=== PATIENT | male | born 1995 | race Caucasian/White ===

== ENCOUNTER 2020-09-22 06:13 | Emergency (ER) | payer OTHER, BC ==
[2020-09-22] MEDS ORDERED: Zofran 4 MG/2 ML VIAL IV ONE (06:26)
[2020-09-22] MEDS ORDERED: Sodium Chloride 0.9% 1000 ML 1,000 ML IV STA ×2 (06:26→07:37)
[2020-09-22] MEDS ORDERED: TYLENOL 325 MG PO ONE (06:27)
[2020-09-22] MEDS ORDERED: Zofran 4 MG/2 ML VIAL ONE (06:33)
[2020-09-22] MEDS ORDERED: TYLENOL 325 MG ONE (06:33)
[2020-09-22] MEDS ORDERED: Sodium Chloride 0.9% 1000 ML 1,000 ML ONE ×2 (06:33→07:44)
--- NOTE | 2020-09-22 06:41 | ERPHSYRPT ---
- History of Present Illness Source: patient Exam Limitations: no limitations Timing/Duration: yesterday Associated Symptoms: nausea, vomiting, cough, chills, fever Hx Tetanus, Diphtheria Vaccination/Date Given: Yes Hx Influenza Vaccination/Date Given: No Hx Pneumococcal Vaccination/Date Given: No <GIL ALMAGUER - Last Filed: 09/22/20 06:55> <DEBORAHLASHAUN HenryTashi - Last Filed: 09/22/20 07:46> - History of Present Illness Time Seen by Provider: 09/22/20 06:13 Physician History: The patient is a 25-year-old male who is otherwise healthy presents with a chief complaint of a fever and cough. Onset reportedly was yesterday. In addition to the above complaints, he also complained of a headache, sore t hroat, sinus congestion, nausea, vomiting and chills. He reportedly had outpatient testing for COVID-19 yesterday which is currently pending. He decided to come to the emergency department this morning because of his ongoing symptoms. Endorsed having nonbloody nonbilious vomiting denies diarrhea. He denies any recent sick contacts. His T-max reportedly was 103 and his last dose of Tylenol was around midnight this morning. (GIL ALMAGUER) Allergies/Adverse Reactions: Penicillins Allergy (Severe, Verified 09/22/20 06:17) SWELLING FACE AND THROAT Home Medications: No Home Meds 03/29/12 [History] - Review of Systems Constitutional: Fever, Chills Eyes: No Symptoms Ears, Nose, & Throat: Nose Congestion, Throat Pain Respiratory: Cough, Dyspnea Cardiac: No Chest Pain Abdominal/Gastrointestinal: Nausea, Vomiting, No Abdominal Pain, No Diarrhea Genitourinary Symptoms: No Dysuria, No Frequency, No Hematuria Musculoskeletal: Myalgias Skin: No Symptoms Neurological: Headache Psychological: No Symptoms All Other Systems: Reviewed and Negative <GIL ALMAGUER - Last Filed: 09/22/20 06:55> - Past Medical History Pertinent Past Medical History: No - Past Surgical History Past Surgical History: No - Social History Smoking Status: Never smoker Exposure to second hand smoke: No Drug Use: none Patient Lives Alone: No ([facility]) <GIL ALMAGUER - Last Filed: 09/22/20 06:55> - Physical Exam General Appearance: no apparent distress, alert Eye Exam: PERRL/EOMI, No scleral icterus, No photophobia, No EOM palsy/anisocoria Ears, Nose, Throat Exam: TMs normal, pharyngeal erythema, tonsillar exudate Neck Exam: normal inspection, supple, No meningismus Respiratory Exam: normal breath sounds, lungs clear, airway intact, No chest tenderness, No respiratory distress Cardiovascular Exam: normal peripheral pulses, tachycardia, capillary refill <2 sec Gastrointestinal/Abdomen Exam: soft Rectal Exam: deferred Back Exam: normal inspection Extremity Exam: normal inspection, No deformities Neurologic Exam: alert, oriented x 3, normal mood/affect Skin Exam: normal color, warm, other (Skin was hot to touch) SpO2 Interpretation: normal O2 Delivery: Room Air <GIL ALMAGUER - Last Filed: 09/22/20 06:55> - Nursing Vital Signs Nursing Vital Signs: Initial Vital Signs Temperature 100.4 F 09/22/20 06:19 Pulse Rate 113 H 09/22/20 06:19 Respiratory Rate 20 09/22/20 06:19 Blood Pressure 136/76 09/22/20 06:19 O2 Sat by Pulse Oximetry 95 09/22/20 06:19 Pain Scale Pain Intensity 8 - Course Nursing assessment & vital signs reviewed: Yes <GIL ALMAGUER - Last Filed: 09/22/20 06:55> Ordered Tests: Active Orders 24 hr Category Date Time Status IV Insertion STAT Care 09/22/20 06:25 Active CHEST 1 VIEW (PORTABLE) Stat Exams 09/22/20 06:25 Taken BMP Stat Lab 09/22/20 06:30 Completed CBC W DIFF Stat Lab 09/22/20 06:30 Completed INFLUENZA A+B MONICO Stat Lab 09/22/20 06:40 Completed Medication Summary Discontinued Medications Generic Name Dose Route Start Last Admin Trade Name Freq PRN Reason Stop Dose Admin Acetaminophen 975 mg 09/22/20 06:27 09/22/20 06:36 Tylenol 325 Mg PO 09/22/20 06:28 975 mg STAT ONE Administration Acetaminophen Confirm 09/22/20 06:33 Tylenol 325 Mg Administered 09/22/20 06:34 Dose 975 mg .ROUTE .STK-MED ONE Sodium Chloride 1,000 mls @ 999 mls/hr 09/22/20 06:26 09/22/20 06:35 Sodium Chloride 0.9% 1000 Ml IV 09/22/20 07:26 999 mls/hr .Q1H1M STA Administration Sodium Chloride Confirm 09/22/20 06:33 Sodium Chloride 0.9% 1000 Ml Administered 09/22/20 06:34 Dose 1,000 mls @ ud .ROUTE .STK-MED ONE Ondansetron HCl 4 mg 09/22/20 06:26 09/22/20 06:36 Zofran 4 Mg/2 Ml Vial IV 09/22/20 06:27 4 mg STAT ONE Administration Ondansetron HCl Confirm 09/22/20 06:33 Zofran 4 Mg/2 Ml Vial Administered 09/22/20 06:34 Dose 4 mg .ROUTE .STK-MED ONE Lab/Rad Data: Laboratory Result Diagrams 09/22/20 06:30 09/22/20 06:30 Laboratory Results 09/22/20 09/22/20 09/22/20 Range/Units 06:40 06:40 06:30 WBC (4.0-10.5) K/mm3 RBC (4.1-5.6) M/mm3 Hgb (12.5-18.0) gm/dl Hct (42-50) % MCV (78-100) fl MCH (26-32) pg MCHC (32-36) g/dl RDW (11.5-14.0) % Plt Count (150-450) K/mm3 MPV (7.5-11.0) fl Gran % (36.0-66.0) % Eos # (Auto) (0-0.5) Absolute Lymphs (auto) (1.0-4.6) Absolute Monos (auto) (0.0-1.3) Lymphocytes % (24.0-44.0) % Monocytes % (0.0-12.0) % Eosinophils % (0.00-5.0) % Basophils % (0.0-0.4) % Absolute Granulocytes (1.4-6.9) Basophils # (0-0.4) Sodium 133 L (137-145) mmol/L Potassium 3.8 (3.5-5.1) mmol/L Chloride 98 (98-107) mmol/L Carbon Dioxide 25 (22-30) mmol/L Anion Gap 13.9 (5-15) MEQ/L BUN 10 (9-20) mg/dL Creatinine 0.71 (0.66-1.25) mg/dL Estimated GFR > 60.0 ML/MIN Glucose 125 H (74-106) mg/dL Calcium 9.6 (8.4-10.2) mg/dL Influenza Type A Ag NEGATIVE (NEGATIVE) Influenza Type B Ag NEGATIVE (NEGATIVE) Group A Strep Antibody DETECTED (NEGATIVE) 09/22/20 Range/Units 06:30 WBC 18.0 H (4.0-10.5) K/mm3 RBC 4.80 (4.1-5.6) M/mm3 Hgb 13.9 (12.5-18.0) gm/dl Hct 42.0 (42-50) % MCV 87.5 (78-100) fl MCH 29.0 (26-32) pg MCHC 33.1 (32-36) g/dl RDW 12.5 (11.5-14.0) % Plt Count 167 (150-450) K/mm3 MPV 11.4 H (7.5-11.0) fl Gran % 86.7 H (36.0-66.0) % Eos # (Auto) 0 (0-0.5) Absolute Lymphs (auto) 0.93 L (1.0-4.6) Absolute Monos (auto) 1.43 H (0.0-1.3) Lymphocytes % 5.2 L (24.0-44.0) % Monocytes % 8.0 (0.0-12.0) % Eosinophils % 0.0 (0.00-5.0) % Basophils % 0.1 (0.0-0.4) % Absolute Granulocytes 15.60 H (1.4-6.9) Basophils # 0.02 (0-0.4) Sodium (137-145) mmol/L Potassium (3.5-5.1) mmol/L Chloride (98-107) mmol/L Carbon Dioxide (22-30) mmol/L Anion Gap (5-15) MEQ/L BUN (9-20) mg/dL Creatinine (0.66-1.25) mg/dL Estimated GFR ML/MIN Glucose (74-106) mg/dL Calcium (8.4-10.2) mg/dL Influenza Type A Ag (NEGATIVE) Influenza Type B Ag (NEGATIVE) Group A Strep Antibody (NEGATIVE) - Progress Counseled pt/family regarding: lab results, diagnosis, need for follow-up, rad results <GIL ALMAGUER - Last Filed: 09/22/20 06:55> <LASHAUN CABRERA - Last Filed: 09/22/20 07:46> - Progress Progress Note: 09/22/20 06:39 Nontoxic appearance. The patient presents with fever, chills, cough and sore throat headache with myalgias as well as nausea and vomiting concerning for viral syndrome. He is already had outpatient testing for Covid early pending at this time. I would not repeat his testing today because of this. I will go and test for influenza and strep pharyngitis. General labs to include CBC and BMP will also be obtained as well as a chest x-ray given his complaint of shortness of breath eval for pneumonia. Given a liter of IV fluids, ondansetron for antiemetics, and Tylenol to treat his fever. Once the patient's fever is coming down or resolved and his tachycardia resolved and he is feeling better I believe he can be discharged home with his work-up was relatively negative or if he does have group A strep pharyngitis or influenza. 09/22/20 06:41 Patient care will be transitioned to Dr. Cabrera pending workup findings and disposition. (GIL ALMAGUER) 09/22/20 07:43 Chest x-ray shows no acute infiltrate or other cardio pulmonary process (LASHAUN CABRERA) - Departure Departure Disposition: Home Critical Care Time: No <GIL ALMAGUER - Last Filed: 09/22/20 06:55> - Departure Departure Disposition: Home Critical Care Time: No <LASHAUN CABRERA - Last Filed: 09/22/20 07:46> - Departure Clinical Impression: Strep pharyngitis Condition: Stable Additional Instructions: Please take Tylenol and/or ibuprofen as needed for any ongoing fevers, aches, or pains. You can purchase these medications [id number]. Please take these medications as instructed on the medication bottle. Prescriptions: Ondansetron ODT 4 MG [Zofran Odt 4 mg] 4 mg PO Q6H PRN PRN #10 tab.rapdis PRN Reason: Nausea/Vomiting Hydrocodone/Acetaminophen [Hydrocodone-Acetamn 7.5-325/15] 10 ml PO Q8H PRN PRN #120 solution MDD 30ml PRN Reason: Cough Benzonatate [Tessalon Perle] 100 mg PO [id number] PRN #30 capsule PRN Reason: Cough Albuterol 8 gm Mdi Hfa [Ventolin Hfa MDI] 90 mcg IH Q4H PRN #1 [id number] PRN Reason: Shortness Of Breath Azithromycin 250 mg [Zithromax 250 MG TABLET] 250 mg PO ZPACK #6 tablet
[2020-09-22 06:48] LABS: BASOPHIL % 0.1 % (0.0-0.4); Basophil (Absolute #) 0.02 (0-0.4); Eosinophil (Absolute #) 0 (0-0.5); Hemoglobin 13.9 gm/dl (12.5-18.0); Lymphocyte (Absolute #) 0.93 (1.0-4.6); Lymphocytes % 5.2 % (24.0-44.0); Mean Cell Volume 87.5 fl (78-100); Mean Corpuscular Hgb Concent. 33.1 g/dl (32-36); Mean Platelet Volume 11.4 fl (7.5-11.0); Monocyte (Absolute #) 1.43 (0.0-1.3); Neutrophil % 86.7 % (36.0-66.0); Platelet Count 167 K/mm3 (150-450); Red Cell Distribution Width 12.5 % (11.5-14.0)
[2020-09-22 06:54] LABS: ANION GAP 13.9 MEQ/L (5-15); BLOOD UREA NITROGEN 10 mg/dL (9-20); CHLORIDE 98 mmol/L (98-107); Calcium 9.6 mg/dL (8.4-10.2); Carbon Dioxide 25 mmol/L (22-30); Creatinine 1 0.71 mg/dL (0.66-1.25); EST GLOMERULAR FILTRATION RATE > 60.0 ML/MIN; Glucose 125 mg/dL (74-106); Potassium 3.8 mmol/L (3.5-5.1); SODIUM 133 mmol/L (137-145)
[2020-09-22 07:01] LABS: INFLUENZA A NEGATIVE (NEGATIVE); INFLUENZA B NEGATIVE (NEGATIVE)
[2020-09-22] MEDS ORDERED: Zithromax 500 MG/ 250 ML NaCl Premix 500 MG/250 ML IVPB IV STA (07:42)
[2020-09-22] MEDS ORDERED: Zithromax 500 MG/ 250 ML NaCl Premix 500 MG/250 ML IVPB IV ONE (07:44)
--- NOTE | 2020-09-22 08:54 | XRAY ---
Indication: Fever and cough. Comparison: August 28, 2018. Portable chest again demonstrates normal heart and lungs. Bony thorax intact. No new/acute findings.
[2020-09-22 08:56] VITALS: BP 106/58; PULSE 78; O2SAT 96
== END 2020-09-22 08:56 | disposition home or self-care (01) ==
LOC: ED 06:13
DX: J02.0 Streptococcal pharyngitis (principal); R11.2 Nausea with vomiting, unspecified; R05 Cough; R50.9 Fever, unspecified; R51.9 Headache, unspecified; R09.81 Nasal congestion
CPT/HCPCS: 36000; 36415; 71045; 80048; 85025; 87400; 87651; 96360; 96365; 96374; 99284; J0456; J2405; A9270-GY

== ENCOUNTER 2020-12-15 16:50 | Emergency (ER) | payer OTHER, BC ==
[2020-12-15] MEDS ORDERED: TORAdol 30 mg Injection IM ONE (18:23)
[2020-12-15] MEDS ORDERED: TORAdol 30 mg Injection ONE ×2 (18:25→18:26)
--- NOTE | 2020-12-15 18:29 | ERPHSYRPT ---
- History of Present Illness Source: patient Patient Subjective Stated Complaint: Pt states "I was working and lifted a meg tito block wrong and my back is killing me." Triage Nursing Assessment: Pt presented alert and oriented X 3, skin pwd Pt ambulates with a slow hunched over gait, able to speak in clear full sentences pt has no bruising, no loss of bowel or bladder. pt csm x 4 Physician History: 25 yo wm w lumbar pain x 12hrs after lifting at work. Pain 7/10 and worse w movement. Pain radiates to L thigh. He has a h/o compression fx's in his upper back due to a fall in HS. He denies any trauma today. Pt also denies dysuria/hematuria/incontinence of urine-stool. Timing/Duration: today (12 hours) Method of Injury: lifting Quality: dull (tightness) Back Pain Location: lumbar spine Back Pain Radiation: upper legs (L thigh) Modifying Factors: Improves With: movement (Worse w movement) Associated Symptoms: lower back pain, No fever, No chills, No sweating, No urinary incontinence, No loss of bowel control, No constipation, No nausea, No vomiting, No problems urinating, No light-headedness, No dizziness, No numbness in legs/feet, No weakness, No sensory/motor loss, No tingling in legs/feet, No muscle spasms Previous symptoms: no prior history Allergies/Adverse Reactions: Penicillins Allergy (Severe, Verified 09/22/20 06:17) SWELLING FACE AND THROAT Hx Tetanus, Diphtheria Vaccination/Date Given: Yes Hx Influenza Vaccination/Date Given: Yes Hx Pneumococcal Vaccination/Date Given: No Immunizations Up to Date: Yes Travel Risk - International Travel Have you traveled outside of the country in past 3 weeks: No - Coronavirus Screening Are you exhibiting any of the following symptoms?: No Close contact with a COVID-19 positive Pt in past 14-21 Days: No - Vaccine Status Have you recieved a Covid-19 vaccination: No - Review of Systems Constitutional: No Symptoms Eyes: No Symptoms Ears, Nose, & Throat: No Symptoms Respiratory: No Symptoms Cardiac: No Symptoms Abdominal/Gastrointestinal: No Symptoms Genitourinary Symptoms: No Symptoms Musculoskeletal: No Symptoms, Back Pain Skin: No Symptoms Neurological: No Symptoms Psychological: No Symptoms Endocrine: No Symptoms Hematologic/Lymphatic: No Symptoms Immunological/Allergic: No Symptoms - Past Medical History Pertinent Past Medical History: No - Past Surgical History Past Surgical History: Yes Musculoskeletal: Orthopedic Surgery Other Surgical History: rt wrist, rt foot, rt shoulder - Social History Smoking Status: Current every day smoker How long have you smoked: years Exposure to second hand smoke: Yes Drug Use: none Patient Lives Alone: No Significant Family History: no pertinent family hx - Nursing Vital Signs Nursing Vital Signs: Initial Vital Signs Temperature 97.2 F 12/15/20 17:32 Pulse Rate 68 12/15/20 17:32 Respiratory Rate 18 12/15/20 17:32 Blood Pressure 112/74 12/15/20 17:32 O2 Sat by Pulse Oximetry 98 12/15/20 17:32 Pain Scale Pain Intensity [Back] 5 Pain Intensity 6 - Physical Exam General Appearance: no apparent distress Eye Exam: PERRL/EOMI, eyes nml inspection Ears, Nose, Throat Exam: normal ENT inspection, TMs normal, pharynx normal, moist mucous membranes Neck Exam: normal inspection, non-tender, supple, full range of motion, No meningismus, No mass, No Brudzinski, No Kernig's Respiratory Exam: normal breath sounds, lungs clear, airway intact Cardiovascular Exam: regular rate/rhythm, normal heart sounds, normal peripheral pulses, No murmur Gastrointestinal Exam: soft, normal bowel sounds, No tenderness Back Exam: vertebral tenderness (Mild vertebral and mild paraspinous ttp/No pain w stiff leg raises B) Extremity Exam: normal inspection, normal range of motion Neurologic Exam: alert, oriented x 3, cooperative, 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, normal mood/affect, nml cerebellar function, nml station & gait, sensation nml, No motor deficits, No sensory deficit Skin Exam: normal color, warm, dry Lymphatic Exam: No adenopathy SpO2 Interpretation: normal SpO2: 98 O2 Delivery: Room Air - Course Nursing assessment & vital signs reviewed: Yes Ordered Tests: Medication Summary Discontinued Medications Generic Name Dose Route Start Last Admin Trade Name Freq PRN Reason Stop Dose Admin Ketorolac Tromethamine 60 mg 12/15/20 18:23 12/15/20 18:26 Toradol 30 Mg Injection IM 12/15/20 18:24 60 mg STAT ONE Administration Ketorolac Tromethamine Confirm 12/15/20 18:25 Toradol 30 Mg Injection Administered 12/15/20 18:26 Dose 30 mg .ROUTE .STK-MED ONE Ketorolac Tromethamine Confirm 12/15/20 18:26 Toradol 30 Mg Injection Administered 12/15/20 18:27 Dose 30 mg .ROUTE .STK-MED ONE - Progress Progress Note: 12/15/20 18:30 60mg IM Toradol Counseled pt/family regarding: diagnosis, need for follow-up - Departure Departure Disposition: Home Clinical Impression: Lumbar strain Condition: Stable Critical Care Time: No Referrals: DOCTOR,NO FAMILY [Primary Care Provider] - Instructions: Low Back Pain (DC) Additional Instructions: Rest/Heat/Massage Follow up with your family MD or company MD No lifting over 15 pounds for 1 week Forms: Work/School Release Form Prescriptions: Orphenadrine Citrate 100 mg [Norflex 100 MG Tablet] 100 mg PO BID PRN #10 tab PRN Reason: Pain Ketorolac Tromethamine [Toradol] 10 mg PO TID PRN #10 tablet PRN Reason: Pain
[2020-12-15 18:52] VITALS: BP 126/78; PULSE 60
[2020-12-16 00:58] VITALS: O2SAT 98
== END 2020-12-15 18:50 | disposition home or self-care (01) ==
LOC: ED 16:50
DX: S39.012A Strain of muscle, fascia and tendon of lower back, initial encounter (principal); X50.0XXA Overexertion from strenuous movement or load, initial encounter; Y92.64 Mine or pit as the place of occurrence of the external cause; Y99.0 Civilian activity done for income or pay
CPT/HCPCS: 96372; 99283; J1885